=== PATIENT | female | born 1960 | race Caucasian/White ===

== ENCOUNTER 2023-06-27 10:28 | Inpatient (IN) | payer MEDICAID ==
[~2023-06-27] VITALS: Ht 175.3 cm; Wt 77.3 kg
[2023-06-27 10:38] VITALS: TEMP 97.9
[2023-06-27 11:45] LABS: BASOPHILS % (AUTO) 0.6 % (0-1); EOSINOPHILS % (AUTO) 0.2 % (0-6); HEMATOCRIT 48.5 % (35.0-45.0); HEMOGLOBIN 16.2 g/dl (12.0-16.0); LYMPHOCYTES # (AUTO) 2.2 X10'3 (1.1-4.8); LYMPHOCYTES % (AUTO) 25.7 % (21-51); MEAN CORPUSCULAR HEMOGLOBIN 29.1 PG (27.0-31.0); MEAN CORPUSCULAR HGB CONC 33.5 g/dL (33.0-36.5); MEAN CORPUSCULAR VOLUME 86.9 FL (78-98); MEAN PLATELET VOLUME 8.4 FL (7.4-10.4); MONOCYTES # (AUTO) 0.5 X10'3 (0-0.9); MONOCYTES % (AUTO) 6.3 % (2-12); NEUTROPHILS # (AUTO) 5.7 X10'3 (1.8-7.7); NEUTROPHILS % (AUTO) 67.2 % (42-75); PLATELET COUNT 376 X10'3 (140-440); RED BLOOD COUNT 5.57 X10'6 (4.20-5.60); RED CELL DISTRIBUTION WIDTH 14.5 % (11.5-14.5); WHITE BLOOD COUNT 8.5 X10'3 (4.5-11.0)
[2023-06-27] MEDS ORDERED: NO HOME MEDS (12:04)
[2023-06-27 12:05] LABS: ALANINE AMINOTRANSFERASE 35 U/L (12-78); ALBUMIN 3.2 G/DL (3.4-5.0); ALBUMIN/GLOBULIN RATIO 0.7 (1.1-1.5); ANION GAP 14 (8-16); ASPARTATE AMINO TRANSFERASE 39 U/L (10-37); BLOOD UREA NITROGEN 14 MG/DL (7-18); BUN/CREATININE RATIO 8.4 (10.0-20.0); CALCIUM 9.2 MG/DL (8.5-10.1); CHLORIDE 101 MMOL/L (99-107); CREATININE 1.67 MG/DL (0.40-0.90); GLUCOSE 133 MG/DL (70-104); SODIUM 142 MMOL/L (135-145); TOTAL CARBON DIOXIDE 26.6 MMOL/L (24-32); TOTAL PROTEIN 7.7 G/DL (6.4-8.2); eCRCL 36 ML/MIN; eGFR 31 ML/MIN
[2023-06-27 12:06] LABS: ALKALINE PHOSPHATASE 155 IU/L (46-116); LIPASE < 50 U/L (73-393)
--- NOTE | 2023-06-27 12:09 | NUR ---
RELIEVING [employer] FOR BREAK, PT IS RESTING QUIETLY ON GURNEY, WAITING TO BE EVALUATED, PT C/O N/V X3 DAYS, H/O CROHN'S, DIARRHEA, EPIGASTRIC PAIN. NO BOWEL MOVEMENT X4 DAYS, NO URINE OUT X2 DAYS
[2023-06-27 12:11] LABS: BILIRUBIN,TOTAL 0.9 MG/DL (0.1-1.0)
[2023-06-27 12:15] LABS: POTASSIUM 1.9 MMOL/L (3.5-5.1)
--- NOTE | 2023-06-27 12:16 | NUR ---
critical value K+ 1.9, Maribell BETANCUR aware
[2023-06-27] MEDS ORDERED: magnesium 2GM in 50ml NS 50 ML IV ONE (12:20)
[2023-06-27] MEDS ORDERED: ondansetron/PF 4mg/2ml inj IV ONE (12:20)
[2023-06-27] MEDS ORDERED: normal saline 1000ML IV soln IVB ONE (12:20)
--- NOTE | 2023-06-27 12:20 | NUR ---
report to Maribell Berrios LVN gave verbal order for EKG
[2023-06-27] MEDS ORDERED: potassium Cl 20 mEq SR tablet PO ONE (12:30)
[2023-06-27] MEDS ORDERED: iohexol 300mg/ml 100ml inj. ONE (13:20)
[2023-06-27 14:26] LABS: BILIRUBIN,URINE NEGATIVE (Neg); CLARITY,URINE SLIGHTLY CLOUDY (Clear); COLOR,URINE YELLOW (Yellow); GLUCOSE, URINE NEGATIVE (Neg); KETONES,URINE NEGATIVE (Neg); LEUKOCYTE ESTERASE ,URINE NEGATIVE (Neg); NITRITES, URINE NEGATIVE (Neg); OCCULT BLOOD,URINE NEGATIVE (Neg); PH,URINE 5.5 (4.8-8.0); PROTEIN,URINE NEGATIVE (Neg); UROBILINOGEN,URINE 0.2 E.U/dL (0.2-1.0)
[2023-06-27 14:29] LABS: URINE HCG NEGATIVE (NEG)
[2023-06-27] MEDS ORDERED: metroNIDAZOLE-Flagyl 500mg/NS 100 ML IV STA (14:33)
[2023-06-27] MEDS ORDERED: ciprofloxacin lact 400MG/200ML 200 ML IV SCH (14:35)
[2023-06-27 14:42] LABS: UA COLLECTION TYPE CLN CATCH MIDSTREAM
[2023-06-27 14:45] LABS: BACTERIA,URINE 1+ /HPF (Neg); RBC,URINE 0-2 /HPF (0-2); SQUAMOUS EPITHELIAL CELL,UR FEW /LPF (FEW); WBC CLUMPS,URINE FEW /HPF (NEGATIVE)
[2023-06-27] MEDS ORDERED: HYDROcodone/acetaminophen 5mg/325mg tablet PO PRN (15:15)
[2023-06-27] MEDS ORDERED: diphenhydrAMINE 25mg capsule PO PRN (15:15)
[2023-06-27] MEDS ORDERED: magnesium 2GM in 50ml NS 50 ML IV PRN (15:15)
[2023-06-27] MEDS ORDERED: potassium Cl 20 mEq SR tablet PO PRN ×2 (15:15)
[2023-06-27] MEDS ORDERED: acetaminophen 325mg tablet PO PRN ×2 (15:15)
[2023-06-27] MEDS ORDERED: ondansetron/PF 4mg/2ml inj IV PRN (15:15)
[2023-06-27] MEDS ORDERED: magnesium Cl slow-release 64mg tablet PO PRN (15:15)
[2023-06-27] MEDS ORDERED: magnesium 4gm in 100ml NS 100 ML IV PRN (15:15)
[2023-06-27] MEDS ORDERED: mag hydrox/Alum hydrox/simeth 30ml oral suspension PO PRN (15:15)
[2023-06-27] MEDS ORDERED: magnesium hydroxide 30ml (MOM) UD suspension PO PRN (15:15)
[2023-06-27] MEDS ORDERED: potassium Cl 40MEQ/1/2NS 520ml 520 ML IV PRN (15:15)
[2023-06-27] MEDS ORDERED: acetaminophen 650mg rectal suppository RC PRN (15:15)
[2023-06-27] MEDS ORDERED: HYDROcodone/acetaminophen 10/325mg tab PO PRN (15:15)
[2023-06-27] MEDS ORDERED: morphine 2 MG/ML inj. syringe IV PRN ×2 (15:15)
[2023-06-27] MEDS ORDERED: normal saline 1000ml 1,000 ML IV SCH (15:15)
--- NOTE | 2023-06-27 15:29 | NUR ---
DR CONTEH AT BEDSIDE TO EVALUATE PT, STARTED 2ND IV TO RT HAND, PT IS RESTING QUIETLY ON GURNEY, RESP EVEN AND UNLABORED,
[2023-06-27] MEDS ORDERED: potassium Cl 40MEQ/1/2NS 520ml 520 ML IV SCH (16:00)
[2023-06-27 16:16] LABS: HEMOGLOBIN A1C 5.5 % (4.5-6.2)
[2023-06-27 17:47] VITALS: BP 108/69; PULSE 68; RESP 18; O2SAT 96
[2023-06-27 17:54] LABS: MAGNESIUM 2.2 MG/DL (1.5-2.4); THYROID STIMULATING HORMONE 1.97 ulU/ml (0.34-4.50)
--- NOTE | 2023-06-27 19:17 | NUR ---
CALL PLACED TO DR CYR WITH REGARDS TO PATIENT WISHING TO LEAVE AMA REQUESTED PRESCRIPTION FOR POTASSIUM MD DECLINED.
[2023-06-27] MEDS ORDERED: POTA-207 PO (19:22)
[2023-06-27] MEDS ORDERED: lactobacillus rhamnosus 10,000 MMU CELLS/CAPSULE PO SCH (20:00)
[2023-06-27] MEDS ORDERED: pantoprazole 40MG/NS 100ML BAG 100 ML IV SCH (20:00)
[2023-06-27] MEDS ORDERED: K and/or MAG REPLACEMENT MC SCH (20:00)
[2023-06-27] MEDS ORDERED: docusate sod 100mg capsule PO SCH (20:00)
[2023-06-27] MEDS ORDERED: heparin, porcine 5000 units/ml vial SQ SCH (20:00)
[2023-06-28] MEDS ORDERED: metroNIDAZOLE-Flagyl 500mg/NS 100 ML IV SCH
[2023-06-28] MEDS ORDERED: ciprofloxacin lact 400MG/200ML 200 ML IV SCH (04:00)
== END 2023-06-27 20:37 | disposition left against medical advice (07) | DRG 249 ==
LOC: ER 10:28 → UNDOADMIN 15:20 → ED HOLD 15:20 → UNDODISIN 20:37
PROVIDERS: ADMIT Family Medicine; ATTEND Family Medicine
DX: A09 Infectious gastroenteritis and colitis, unspecified (principal); N17.9 Acute kidney failure, unspecified; K50.90 Crohn's disease, unspecified, without complications; E87.6 Hypokalemia; Z53.29 Procedure and treatment not carried out because of patient's decision for other reasons; K29.00 Acute gastritis without bleeding
CPT/HCPCS: 36415; 74176; 80053; 81001; 81025; 83036; 83605; 83690; 83735; 84145; 84443; 85025; 87040; 87088; 99285; G0378; J0744; J2405; J3475; J3480; J3490; J7030; Q9967